=== PATIENT | female | born 1975 | race Two or more races ===

== ENCOUNTER 2017-08-09 11:06 | Emergency (ER) | payer MEDICAID ==
[~2017-08-09] VITALS: Ht 172.7 cm; Wt 64.4 kg
--- NOTE | 2017-08-09 11:15 | NUR ---
[id number] from bus: s/p witnessed seizure ~ 1-2 min. bs in field 140, postictal. a/ox 2-3, breathing even and unlabored. No SOB, NAD, vitals stable. Safety and comfort measures in place. awaiting md orders.
[2017-08-09] MEDS ORDERED: LEVETIRACETAM (500MG) 500 MG in IV NS 0.9% 100 ML IV ONE (11:30)
[2017-08-09] MEDS ORDERED: IV NS 0.9% 500 ML BAG IV ONE (11:30)
--- NOTE | 2017-08-09 11:30 | NUR ---
NEW IV STARTED ON RFA, 20G, BLOOD DRAWN AND SENT TO LAB.
[2017-08-09 11:38] LABS: BASOPHILS # (AUTO) 0.1 /CMM (0.0-0.2); EOSINOPHILS % (AUTO) 0.3 % (0.0-6.0); HEMATOCRIT 32 % (33-45); HEMOGLOBIN 10.9 g/dL (11.5-14.8); LYMPHOCYTES # (AUTO) 1.1 /CMM (0.8-4.8); LYMPHOCYTES % (AUTO) 16.9 % (20.0-44.0); MEAN CORPUSCULAR HGB CONC 33 g/dl (31.0-36.0); MEAN CORPUSCULAR VOLUME 90 fL (82-100); MONOCYTES % (AUTO) 14.7 % (2.0-12.0); NEUTROPHILS # (AUTO) 4.6 /CMM (1.8-8.9); NEUTROPHILS % (AUTO) 67.1 % (43.0-81.0); PLATELET COUNT (AUTO) 264 /CMM (150-450); RDW COEFFICIENT OF VARIATION 20.2 (11.5-15.0); RED BLOOD CELL COUNT(AUTO) 3.63 MIL/uL (4.0-5.2); WHITE BLOOD COUNT (AUTO) 6.8 K/uL (4.3-11.0)
[2017-08-09] MEDS ORDERED: FLUO-120 PO (11:45)
[2017-08-09] MEDS ORDERED: GABA-534 PO (11:45)
[2017-08-09] MEDS ORDERED: LEVE250T2 PO (11:45)
[2017-08-09] MEDS ORDERED: LISI-603 PO (11:45)
[2017-08-09 11:51] LABS: ALANINE AMINOTRANSFERASE 58 U/L (12-78); ALBUMIN 4.2 g/dL (3.4-5.0); ALKALINE PHOSPHATASE 82 U/L (46-116); ASPARTATE AMINOTRANSFERASE 53 U/L (15-37); BILIRUBIN,DIRECT 0.2 mg/dL (0.0-0.2); BILIRUBIN,TOTAL 0.5 mg/dL (0.2-1.0); CALCIUM, SERUM 8.8 mg/dL (8.5-10.1); CARBON DIOXIDE 22 mmol/L (21-32); CHLORIDE 97 mmol/L (98-107); GLUCOSE 128 mg/dL (74-106); POTASSIUM 3.8 mmol/L (3.5-5.1); SODIUM SERUM 135 mmol/L (136-145)
[2017-08-09 11:58] LABS: ALCOHOL, BLOOD < 3 mg/dL (0-0)
[2017-08-09 12:12] LABS: CREATININE 0.5 mg/dL (0.6-1.3); UREA NITROGEN, BLOOD 4 mg/dL (7-18)
[2017-08-09 13:04] VITALS: BP 145/89
--- NOTE | 2017-08-09 13:05 | NUR ---
Patient discharged to home in stable condition. Written and verbal after care instructions given. Patient verbalizes understanding of instruction. IV removed. Catheter intact and site benign. Pressure and 4x4 applied to site. No bleeding noted. Prescription given.
== END 2017-08-09 13:06 | disposition home or self-care (01) ==
LOC: ER 11:09
DX: G40.909 Epilepsy, unspecified, not intractable, without status epilepticus (principal); F32.9 Major depressive disorder, single episode, unspecified; I10 Essential (primary) hypertension; Z91.14 Patient's other noncompliance with medication regimen
CPT/HCPCS: 36415; 80048-TC; 80076-TC; 85025-TC; A4606; G0480; J1953; J7030; J7040; Z7610